=== PATIENT | male | born 1990 | race African-American/Black ===

== ENCOUNTER 2016-08-31 21:00 | Inpatient (IN) | payer OTHER ==
--- NOTE | ~2016-08-31 | DS ---
Unit #: [id number] #: [id number] Patient: TERRELL TORRES [id number] [facility] [address] [place] [address] [id number] MR#: [id number] NAME: TERRELL TORRES ROOM: [facility] Age: 26 Sex: M Admission Date: 09/01/2016 : 1990 Discharge Date: 09/03/2016 Attending Physician: Alphonse Caldwell M.D. Primary Care Physician: Generic Doctor Not In System DISCHARGE SUMMARY REASON FOR ADMISSION 1. Opiate abuse. 2. Mood disorder not otherwise specified. DIAGNOSTIC STUDIES LABORATORY DATA: Urine drugs screen positive for benzodiazepine, cocaine, and marijuana. HOSPITAL COURSE The patient was admitted to inpatient unit on September 01 and discharged on 09/03/2016. The patient was treated with group therapy, individual therapy, chemical dependency group. The patient was responsive to treatment. Subsequently, the patient was discharged with a plan to follow up in outpatient program. The patient denied any suicidal or homicidal ideation. Denied any psychotic symptom. DISCHARGE MEDICATIONS None. DISCHARGE DIAGNOSES PSYCHIATRIC: Mood disorder not otherwise specified, F32.9. Alcohol use disorder, severe, F10.20. Cannabis abuse, moderate, F12.20 Cocaine use disorder, severe, F14.20 Sedative hypnotic use disorder, F13.20 SECONDARY: Deferred. MEDICAL: None. STRESSORS: Psychosocial stressor. FOLLOWUP CARE The patient to follow up in outpatient clinic as per rn social services. CONDITION ON DISCHARGE The patient pleasant, cooperative. Denied any psychotic symptom or any suicidal ideation. PROGNOSIS Guarded. DIET AND ACTIVITY As tolerated. Dictated by... Unit #: [id number] #: [id number] Patient: TERRELL TORRES Danisha Delgadillo/carlos manuel TD: 09/04/2016 10:41 JOB #: [id number] DISCHARGE SUMMARY Page 1 of 1 X Alphonse Caldwell MD DISCHARGE SUMMARY
--- NOTE | ~2016-08-31 | HP ---
Unit #: [id number] #: [id number] Patient: TERRELL TORRES [id number] [place] [address] [id number] I MR#: [id number] NAME: TERRELL TORRES ROOM: P212 Age: 26 Sex: M Admission Date: 09/01/2016 : 1990 Attending Physician: Alphonse Caldwell M.D. Admitting Physician: Alphonse Caldwell M.D. Primary Care Physician: Generic Doctor Not In System HISTORY AND PHYSICAL HISTORY OF PRESENT ILLNESS Terrell is a 26 year old admitted to [address] [place] [address] because of his polysubstance abuse. PAST MEDICAL HISTORY 1. History of alcohol abuse. 2. History of illicit substance abuse to include opioids. PAST SURGICAL HISTORY Nothing reported. ALLERGIES Hydrocodone, tramadol. SOCIAL HISTORY Smokes one-half pack per day. Drinks alcohol frequently and has a history of illicit drug use to include opioids and benzodiazepines. FAMILY HISTORY Medically noncontributory. REVIEW OF SYSTEMS CONSTITUTIONAL: No fever or chills. HEENT: Denies any sore throat, ear pain or runny nose. CARDIOVASCULAR: Denies chest pain, irregular heart rhythm or palpitations. CHEST: Denies shortness of breath or cough. No hemoptysis. GASTROINTESTINAL: Denies nausea, vomiting, diarrhea or chronic constipation. ENDOCRINE: Denies history of increased thirst or urination. No recent significant weight loss or gain. GENITOURINARY: Denies dysuria, frequency, or hematuria. SKIN: Denies any rashes. HEMATOLOGIC: Denies history of increased bleeding or bruising. MUSCULOSKELETAL: Denies any hot, swollen joints. No generalized muscle pain. NEUROLOGIC: Denies problems with vision or speech. No frequent, severe headaches. No numbness, tingling or weakness in any extremities. Denies loss of bladder or bowel control. CURRENT MEDICATIONS Detox protocol Unit #: [id number] #: [id number] Patient: TERRELL TORRES PHYSICAL EXAMINATION GENERAL: Alert, well-nourished, in no apparent distress. VITAL SIGNS: Blood pressure 148/98, heart rate 80, respirations 16, temperature 98.6. WEIGHT: 185 pounds. HEIGHT: 6'0". SKIN: Warm and dry without rash or lesion. HEENT: Normocephalic. TMs not viewed. Oral and nasal passages clear. Conjunctivae clear. Pupils equal, round and reactive to light and accommodation. Extraocular movements intact. NECK: Supple without lymphadenopathy or thyromegaly. HEART: Regular rate and rhythm without murmur. LUNGS: Clear. ABDOMEN: Soft, nontender. : Not done. EXTREMITIES: No evidence of cyanosis, clubbing or edema. Moves all extremities without focal deficit. NEUROLOGICAL: Grossly within normal limits. Cranial Nerves: II: Visual angel are intact. III, IV AND : Extraocular movements are intact. Pupils are equal, round and reactive to light. V: Facial sensation is grossly normal. VII: Facial movements and expression are normal. VIII: Auditory acuity grossly intact. IX, X: Uvula is midline. Phonation is normal. XI: Patient shrugs shoulders and turns head normally. XII: Tongue protrudes in the midline. Sensory and Motor Function: Sensory and motor sensation is grossly normal. Motor: moves all extremities well. Coordination: Gait is normal. Deep Tendon Reflexes: Intact. IMPRESSION Psychiatric admission RECOMMENDATIONS PSYCHIATRIC: Per psychiatrist. MEDICAL: I see no contraindications to participating in facility's activities. MEDICAL PROGNOSIS Good. MEDICAL CONDITION Stable. Dictated by... Joy Sullivan PRoseyAJesus. for Danisha Reyes/saúl TD: 09/01/2016 21:02 JOB #: [id number] Unit #: [id number] #: [id number] Patient: TERRELL TORRES HISTORY AND PHYSICAL Page 1 of 1 X Joy Sullivan X HISTORY AND PHYSICAL
--- NOTE | ~2016-08-31 | PA ---
Unit #: [id number] #: [id number] Patient: TERRELL NIEVES [id number] [facility] [address] [place] [address] [id number] MR#: [id number] NAME: TERRELL NIEVES ROOM: P212 Age: 26 Sex: M Admission Date: 09/01/2016 : 1990 Date of Assessment: Attending Physician: Alphonse Caldwell M.D. Admitting Physician: Alphonse Caldwell M.D. Primary Care Physician: Generic Doctor Not In System PSYCHIATRIC ASSESSMENT INFORMANTS The patient's reliability, fair; chart reliability, good. CHIEF COMPLAINT Alcohol abuse. HISTORY OF PRESENT ILLNESS Mr. Nieves is a 26-year-old male, presented with the alcohol abuse and alcohol withdrawal. The patient reported lives at home with girlfriend and daughter 3. The patient reported that he took a greenhorn from [place] and seek treatment and unable to be placed at a detox program. The patient reports that he is seeking treatment to avoid loss of job, avoid loss of his 3-year-old daughter. The patient reports suicidal ideation to hurt himself, denied any plan. The patient denied any psychotic symptom or any homicidal ideation. Reported feeling of hopelessness, decreased energy, sad, depressed, anxious. The patient has a history of hypertension and asthma. The patient reported tobacco use, age of onset 21; alcohol, age of onset 21; marijuana, age of onset 11; crack cocaine, age of onset 17; opioid, age of onset 26; benzodiazepine, age of onset 26. Longest period of sobriety four and half months, last period of sobriety 2015. The patient reported history of blackouts, withdrawal symptom, but no history of any HIV, hepatitis, or IV drug use. Currently, reporting abdominal cramping, diaphoresis, diarrhea, depressed mood, poor concentration, restlessness, rhinorrhea, sleep problem. PAST PSYCHIATRIC HISTORY Unremarkable for any history of previous treatment. FAMILY HISTORY AND SOCIAL HISTORY The patient has a good support system. No history of abuse. No legal charges. MEDICAL HISTORY Remarkable for history of hypertension and asthma. Musculoskeletal; muscle strength and tone, no atrophy or abnormal movement. Gait normal. MEDICATION HISTORY None. ALLERGIES No known drug allergies. SUBSTANCE ABUSE HISTORY Unit #: [id number] #: [id number] Patient: TERRELL NIEVES Please see above. REVIEW OF SYSTEMS HEENT: Eyes, clear. Ears, nose, mouth, and throat; clear. CARDIOVASCULAR: Unremarkable. RESPIRATORY: Unremarkable. GI: Unremarkable. : Unremarkable. SKIN: Unremarkable. LYMPH NODE: Unremarkable. NEUROLOGIC: Unremarkable. ENDOCRINE: Unremarkable. HEMATOLOGIC: Unremarkable. ALLERGIC/IMMUNOLOGIC: Unremarkable. MUSCULOSKELETAL: Muscle strength and tone, no atrophy or abnormal movement. Gait normal. MENTAL STATUS EXAMINATION CONSTITUTIONAL: Measurement of vital signs; temperature 97.9, pulse 80, respirations 14, blood pressure 131/87; height 6 feet and weight 185 pounds. GENERAL APPEARANCE: The patient dressed casually. The patient did not show any facial deformity. MUSCULOSKELETAL: Please see above. PSYCHIATRIC EXAMINATION Description of speech; regular rate, normal volume, normal articulation, coherent. Description of thought process, goal directed. Description of association, intact. Description of abnormal psychotic thinking; the patient denied any hallucination or delusions, but depression and substance abuse. Description of the patient's judgment; concerning everyday activity, poor. Social situation, poor. Concerning psychiatric condition, poor. Complete mental status examination; oriented in time, place, and person. Recent and remote memory, fair. Attention span and concentration, fair. Language, able to name object and repeat phrases. Fund of knowledge, aware of current event and passive vocabulary intact. Mood and affect, sad and dysphoric. Insight and judgment, fair to poor. ASSETS AND LIABILITIES Assets; the patient articulate, able to take care of his ADL. Liability; history of depression, substance abuse. ADMITTING DIAGNOSES Psychiatric: Major depressive disorder, recurrent, F33.2; alcohol use disorder, severe, F10.20; history of opioid abuse, F11.20. Secondary diagnosis: Deferred. Medical diagnoses: History of hypertension and asthma. Stressors: Psychosocial stressor. PSYCHIATRIC PLAN AND TREATMENT GOAL 1. Advised to admit the patient on the inpatient unit. Provide safe, supportive, and structured environment. 2. Ordered labs; CBC, CMP, UA, and UDS. Unit #: [id number] #: [id number] Patient: TERRELL NIEVES 3. The patient to attend all the programing. Trazodone 75 mg q.h.s. p.r.n. for sleep. Detox protocol and detox monitoring. The patient to attend group therapy, individual therapy, chemical dependency group. Treatment goal to attain euthymic mood, gain insight into his problem, and learn coping skills. DISCHARGE PLAN Plan to stabilize the patient and consider followup in outpatient program. ESTIMATED LENGTH OF STAY 5 days. Dictated by... Alphonse Caldwell M.D. PARISH/angelita TD: 09/03/2016 00:48 JOB #: [id number] PSYCHIATRIC ASSESSMENT Page 1 of 1 X Alphonse Caldwell MD X PSYCHIATRIC ASSESSMENT
[2016-09-02 09:29] LABS: BASOPHIL% 0.5 % (0-2.5); EOSINOPHIL# 0.1 X10e3 (0-0.7); EOSINOPHIL% 1.6 % (0.0-7.0); HEMATOCRIT 43.9 % (38.0-50.0); HEMOGLOBIN 14.8 gm/dL (13.0-16.0); LYMPHOCYTE# 1.3 X10e3 (1.0-3.5); LYMPHOCYTE% 36.2 % (17.0-45.0); MEAN CELL VOLUME 96.4 FL (83-96); MEAN CORPUSCULAR HEMOGLOBIN 32.6 PG (28-34); MEAN CORPUSCULAR HGB CONC 33.8 g/dL (30-36); MEAN PLATELET VOLUME 8.5 FL (6.5-11.5); MONOCYTE# 0.4 X10e3 (0-1.0); MONOCYTE% 9.7 % (3.0-12.0); NEUTROPHIL# 1.9 X10e3 (1.5-7.1); PLATELET COUNT 205 X10e3 (140-420); RED BLOOD COUNT 4.55 X10e (3.90-5.60); RED CELL DISTRIBUTION WIDTH 12.6 % (11.0-15.5); WHITE BLOOD COUNT 3.7 X10e3 (4.0-10.5)
[2016-09-02 09:36] LABS: DIFF IND NO
[2016-09-02 09:52] LABS: BILIRUBIN,TOTAL 0.9 mg/dL (0.2-2.0); CALCIUM SERUM 9.6 mg/dL (8.4-10.2); CREATININE SERUM 1.2 mg/dL (0.6-1.4); GLOM FILT RATE Estimated 94.8 mL/min (>60); POTASSIUM 4.4 mmol/L (3.5-5.1); PROTEIN TOTAL SERUM 7.1 g/dL (6.0-8.3)
[2016-09-02 09:54] LABS: URINE APPEARANCE CLOUDY; URINE BILIRUBIN NEG (NEG); URINE BLOOD TRACE (NEG); URINE COLOR YELLOW; URINE GLUCOSE NEG (NEG); URINE KETONE NEG (NEG); URINE LEUKOCYTE ESTERASE 2+ (NEG); URINE NITRATE NEG (NEG); URINE PROTEIN NEG (NEG); URINE SPECIFIC GRAVITY 1.016 (1.003-1.035); URINE UROBILINOGEN 0.2 MG/DL (NEG)
[2016-09-02 09:57] LABS: URINE BACTERIA AUWI NEG (NEGATIVE); URINE SQUAMOUS EPITHELIAL CELL FEW /[HPF]; UWBCS1 AUWI 50-100 (0-5)
[2016-09-02 10:32] LABS: AMPHETAMINE NEG (NEG); BARBITURATES NEG (NEG); BENZODIAZEPINES POS (NEG); COCAINE POS (NEG); MARIJUANA POS (NEG); OPIATES NEG (NEG); TRICYCLIC ANTIDEPRESSANTS NEG (NEG); U METHADONE NEG (NEG)
[2016-09-02 10:34] LABS: URINE AMORPHOUS SEDIMENT AMORP PHOSPHATES; URINE MUCUS PRESENT; URINE YEAST PRESENT
== END 2016-09-03 14:11 | disposition home or self-care (01) | DRG 885 ==
LOC: POF 09-01 09:25 → P2S 09-01 09:25 → POF 09-01 11:29 → P2S 09-01 12:26
PROVIDERS: Psychiatry & Neurology Psychiatry
PROC: HZ2ZZZZ Detoxification Services for Substance Abuse Treatment (ICD-10-PCS; principal; 2016-09-01)
DX: F33.9 Major depressive disorder, recurrent, unspecified (principal); I10 Essential (primary) hypertension; F10.20 Alcohol dependence, uncomplicated; J45.909 Unspecified asthma, uncomplicated; Z88.8 Allergy status to other drugs, medicaments and biological substances; F17.210 Nicotine dependence, cigarettes, uncomplicated
CPT/HCPCS: 80053; 80307; 81003; 85025; 86592